=== PATIENT | male | born 1995 | race Hispanic/Latino ===

== ENCOUNTER 2021-04-01 14:11 | Emergency (ER) | payer SELFPAY ==
[~2021-04-01] VITALS: Ht 170.2 cm; Wt 84.0 kg
[2021-04-01] MEDS ORDERED: KEFLEX500 MG PO (16:29)
[2021-04-01] MEDS ORDERED: HYDROCO/APAP1 TA9 PO (16:29)
[2021-04-01 16:57] VITALS: BP 126/72
== END 2021-04-01 16:57 | disposition home or self-care (01) | DRG 605 ==
LOC: ED 14:11
PROC: 0HQGXZZ Repair Left Hand Skin, External Approach (ICD-10-PCS; principal; 2021-04-01)
DX: S61.217A Laceration without foreign body of left little finger without damage to nail, initial encounter (principal); W45.0XXA Nail entering through skin, initial encounter; Y93.89 Activity, other specified